=== PATIENT | female | born 1995 | race Caucasian/White ===

== ENCOUNTER 2021-12-08 10:23 | Outpatient (CLI) | payer OTHER ==
[~2021-12-08 10:23] MED LIST: PRENATAL TABLE1 EAC1 PO; PROGESTERONE50 MG/M1 IM
== END 2021-12-08 10:53 | disposition home or self-care (01) ==
LOC: PPH VACUNA 10:23
PROVIDERS: ATTEND Emergency Medicine Pediatric Emergency Medicine
DX: Z23 Encounter for immunization (principal)